=== PATIENT | male | born 1995 | race Caucasian/White ===

== ENCOUNTER 2017-12-09 10:25 | Emergency (ER) | payer MEDICAID ==
[~2017-12-09] VITALS: Ht 182.9 cm; Wt 97.7 kg
[2017-12-09] MEDS ORDERED: TETanus/Pertussis (Acell)/Diphther VAC/PF (Tdap-Adult) 0.5ml syringe IM ONE (10:50)
[2017-12-09] MEDS ORDERED: HYDR-3965 PO (10:55)
[2017-12-09] MEDS ORDERED: ONDA4TAB9 PO (10:55)
[2017-12-09] MEDS ORDERED: SULF1TAB49 PO (10:55)
[2017-12-09] MEDS ORDERED: CEPH-572 PO (10:55)
[2017-12-09] MEDS ORDERED: BUPIVAcaine/PF 2.5 mg/ml (0.25%) 30ml vial IJ ONE (11:10)
[2017-12-09] MEDS ORDERED: HYDROcodone/acetaminophen 10/325mg tab PO ONE (11:30)
[2017-12-09] MEDS ORDERED: ondansetron 4mg rapidly disintigrating tab PO ONE (11:30)
[2017-12-09] MEDS ORDERED: normal saline 1000ML IV soln IVB ONE (11:40)
[2017-12-09] MEDS ORDERED: HYDROmorphone 2mg/ml vial IV PRN (11:40)
[2017-12-09] MEDS ORDERED: vancomycin/NS 1 GM ADD-VANTAGE 250 ML IV ONE (11:40)
[2017-12-09] MEDS ORDERED: piperacillin/tazo 3.375gm/50ml 50 ML IV ONE (11:40)
[2017-12-09] MEDS ORDERED: iohexol 300mg/ml 100ml inj. ONE (11:54)
[2017-12-09 12:14] LABS: BASOPHILS % (AUTO) 0.2 % (0-1); EOSINOPHILS # (AUTO) 0.4 X10'3 (0-0.9); EOSINOPHILS % (AUTO) 2.6 % (0-6); HEMATOCRIT 37.1 % (42.0-52.0); HEMOGLOBIN 13.2 g/dl (14.0-17.9); LYMPHOCYTES # (AUTO) 2.5 X10'3 (1.1-4.8); LYMPHOCYTES % (AUTO) 17.2 % (21-51); MEAN CORPUSCULAR HGB CONC 35.6 % (33.0-36.5); MEAN CORPUSCULAR VOLUME 84.2 FL (78-98); MEAN PLATELET VOLUME 7.2 FL (7.4-10.4); MONOCYTES # (AUTO) 1.1 X10'3 (0-0.9); MONOCYTES % (AUTO) 7.5 % (2-12); NEUTROPHILS # (AUTO) 10.7 X10'3 (1.8-7.7); NEUTROPHILS % (AUTO) 72.5 % (42-75); PLATELET COUNT 225 X10'3 (140-440); RED BLOOD COUNT 4.41 X10'6 (4.70-6.10); RED CELL DISTRIBUTION WIDTH 13.2 % (11.5-14.5); WHITE BLOOD COUNT 14.7 X10'3 (4.5-11.0)
[2017-12-09 12:28] LABS: ALANINE AMINOTRANSFERASE 33 U/L (12-78); ALBUMIN 3.4 G/DL (3.4-5.0); ALBUMIN/GLOBULIN RATIO 0.9 (1.1-1.5); ALKALINE PHOSPHATASE 55 IU/L (46-116); ANION GAP 6 (8-16); ASPARTATE AMINO TRANSFERASE 16 U/L (10-37); BILIRUBIN,TOTAL 0.4 MG/DL (0.1-1.0); BLOOD UREA NITROGEN 15 MG/DL (7-18); CALCIUM 8.6 MG/DL (8.5-10.1); CHLORIDE 106 MMOL/L (99-107); GLUCOSE 112 MG/DL (70-104); POTASSIUM 3.3 MMOL/L (3.5-5.1); SODIUM 140 MMOL/L (135-145); TOTAL PROTEIN 7.1 G/DL (6.4-8.2); eGFR > 90 ML/MIN
[2017-12-09] MEDS ORDERED: HYDROmorphone 1 mg/ml syringe IV ONE (14:25)
[2017-12-09] MEDS ORDERED: ondansetron/PF 4mg/2ml inj IV ONE (14:30)
[2017-12-09] MEDS ORDERED: morphine 5 MG/ML injection IV ONE (15:30)
[2017-12-09 16:52] VITALS: BP 144/69
== END 2017-12-09 16:57 | disposition home or self-care (01) ==
LOC: ER 10:25
DX: L05.01 Pilonidal cyst with abscess (principal)
CPT/HCPCS: 10080; 36415; 72193; 80053; 83605; 84145; 85025; 87040; 87070; 90471; 90715; 96361; 96365; 96375; 99285; A6222; A6255; A6266; A6449; J1170; J2543; J3370; J3490; J7030; Q9967; 10060; 96374

== ENCOUNTER 2019-07-21 09:32 | Emergency (ER) | payer MEDICAID, OTHER ==
[~2019-07-21] VITALS: Ht 185.4 cm; Wt 90.9 kg
[2019-07-21] MEDS ORDERED: LIDOcaine 1% w/EPI 1:200,000 injection 10mL vial IM ONE (09:50)
[2019-07-21] MEDS ORDERED: LIDOcaine 1% W/epiNEPHrine 1:100,000 20ml vial IJ ONE (10:00)
[2019-07-21] MEDS ORDERED: HYDR-3965 PO (10:27)
[2019-07-21] MEDS ORDERED: SULF1TAB49 PO (10:27)
[2019-07-21] MEDS ORDERED: CEPH500C5 PO (10:27)
[2019-07-21] MEDS ORDERED: HYDROcodone/acetaminophen 5mg/325mg tablet PO ONE (10:30)
[2019-07-21 10:32] VITALS: BP 141/86
== END 2019-07-21 10:42 | disposition home or self-care (01) ==
LOC: ER 09:32
DX: L05.01 Pilonidal cyst with abscess (principal); F10.99 Alcohol use, unspecified with unspecified alcohol-induced disorder; Z79.899 Other long term (current) drug therapy; Y90.9 Presence of alcohol in blood, level not specified
CPT/HCPCS: 10080; 99284